=== PATIENT | female | born 1985 | race Two or more races ===

== ENCOUNTER 2021-03-04 13:41 | Outpatient (CLI) | payer OTHER | END 2021-03-04 15:23 | disposition home or self-care (01) | LOC: PRENATAL 13:41 | PROVIDERS: ATTEND Obstetrics & Gynecology Maternal & Fetal Medicine | DX: O35.0XX1 Maternal care for (suspected) central nervous system malformation in fetus, fetus 1 (principal); O35.3XX1 Maternal care for (suspected) damage to fetus from viral disease in mother, fetus 1; O98.512 Other viral diseases complicating pregnancy, second trimester; O09.512 Supervision of elderly primigravida, second trimester; Z36.89 Encounter for other specified antenatal screening; Z3A.22 22 weeks gestation of pregnancy ==

== ENCOUNTER 2021-06-24 08:14 | Inpatient (IN) | payer OTHER ==
[~2021-06-24] VITALS: Ht 157.5 cm; Wt 2.7 kg
[2021-06-24] MEDS ORDERED: PRENATAL CAPLE1 EAC1 PO (11:17)
== END 2021-06-27 14:21 | disposition home or self-care (01) | DRG 788 ==
LOC: OB/GYN 08:14 → LDR 11:10 → O/R 17:02 → OB/GYN 18:36
PROVIDERS: ADMIT Obstetrics & Gynecology; ATTEND Obstetrics & Gynecology
PROC: 4A1HXCZ Monitoring of Products of Conception, Cardiac Rate, External Approach (ICD-10-PCS; 2021-06-24)
PROC: 10D00Z1 Extraction of Products of Conception, Low, Open Approach (ICD-10-PCS; principal; 2021-06-24 15:00)
DX: O32.2XX0 Maternal care for transverse and oblique lie, not applicable or unspecified (principal); Z3A.39 39 weeks gestation of pregnancy; Z37.0 Single live birth; Z20.822 Contact with and (suspected) exposure to COVID-19